=== PATIENT | male | born 1965 | race Caucasian/White ===

== ENCOUNTER 2022-01-23 10:08 | Emergency (ER) | payer OTHER, SELFPAY ==
--- NOTE | ~2022-01-23 | XR_ITS ---
EXAMINATION: XR wrist LT min 3V DATE: 01/23/2022 10:29 INDICATION: Left wrist pain and swelling one day post fall TECHNIQUE: Posteroanterior, ulnar deviation, oblique, and lateral views of the left wrist were obtain ed. COMPARISON: none FINDINGS: Comminuted intra-articular fracture of the distal left radius. There is both a transverse fracture pl ane at the metaphysis as well as a sagittally oriented fracture plane which extends to the articular surface at the lunate fossa without significant fracture gap or incongruity. Mild posterior displacem ent of a small fragment along the dorsal cortex of the metaphysis. Alignment remains otherwise essent ially anatomic. No other fractures identified. 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 IMPRESSION: 1. Comminuted intra-articular fracture of the distal left radius which remains in near-anatomic align ment. Reviewed, dictated and finalized at location A. IMPRESSION: 1. Comminuted intra-articular fracture of the distal left radius which remains in near-anatomic alignment.
[2022-01-23 10:41] VITALS: BP 146/89; PULSE 73; RESP 16; TEMP 36.2; O2SAT 100
--- NOTE | 2022-01-23 12:47 | ED.GENADULT ---
HPI - General Adult General Chief complaint: Extremity Injury, Upper Stated complaint: Left Wrist Injury Time Seen by Provider: 01/23/22 11:54 Source: patient Limitations: no limitations History of Present Illness HPI narrative: 57-year-old male presenting to the emergency department for evaluation of left wrist pain after having a fall last night. Patient states he was walking down his stairs in his socks when he slipped, fell and injured his left wrist. Patient did strike his head but denies any loss of consciousness. Patient denies any current headache. Fall happened approximately midnight to 2 AM. Patient states he did initially ice the wrist and wore a splint last night but woke up and was still having persistent swelling and pain so he presented to the emergency department for evaluation. Related Data Allergies Allergy/AdvReac Type Severity Reaction Status Date / Time Penicillins Allergy Unknown -rash Verified 09/14/17 21:20 (reported to ortho) Review of Systems Review of Systems: CONSTITUTIONAL: Denies fever, chills, or sweats. EYES: Denies visual changes, redness, or discharge. ENT: Denies rhinorrhea, congestion, sore throat, or otalgia. CARDIOVASCULAR: Denies chest pain, palpitations, or edema. RESPIRATORY: Denies cough or dyspnea. GASTROINTESTINAL: Denies abdominal pain, nausea, vomiting, or diarrhea. GENITOURINARY: Denies dysuria or hematuria. SKIN: Denies rash or itching. MUSCULOSKELETAL: See HPI NEUROLOGIC: Denies headache, numbness, or weakness. PSYCHIATRIC: Denies anxiety or depression. Exam Narrative: APPEARANCE: Well appearing, no distress, well-nourished. HEAD: normocephalic, atraumatic. EYES: PERRLA/EOMI, conjunctivae clear. NOSE: Normal no drainage EARS:TMS clear with good light reflex. NECK: Supple. No adenopathy, no masses. No midline tenderness to palpation RESPIRATORY: Airway patent, respirations nonlabored. Clear to auscultation bilaterally, no rales, rhonchi, wheezing. CARDIOVASCULAR: Regular rate and rhythm without murmurs rubs or gallops. ABDOMINAL: Soft, nontender, nondistended, normal bowel sounds MUSCULOSKELETAL: Left wrist tenderness to palpation with swelling. Neurovascular intact. Good strength and reflexes NEURO: Alert. Cranial nerves II through XII intact. Good gait. Good coordination SKIN: Abrasion to left forehead, no tenderness to palpation, no hematoma PSYCHIATRIC: Normal affect/mood. Course Course Emergency Course: Patient was updated on the results of the x-ray. Patient was placed in an Ortho-Glass splint in the ED. Patient was also provided a sling for comfort. Patient was encouraged to have close follow-up with orthopedics. All questions and concerns were addressed. Patient was well-appearing at time of discharge from the emergency. Vital Signs Vital signs: Vital Signs Temperature 97.1 F L 01/23/22 10:41 Pulse Rate 73 01/23/22 10:41 Respiratory Rate 16 01/23/22 10:41 Blood Pressure 146/89 H 01/23/22 10:41 Pulse Oximetry 100 01/23/22 10:41 Temperature 97.1 F L 01/23/22 10:41 Pulse Rate 73 01/23/22 10:41 Respiratory Rate 16 01/23/22 10:41 Blood Pressure 146/89 H 01/23/22 10:41 Pulse Oximetry 100 01/23/22 10:41 Medical Decision Making Vital Signs Vital Signs: Vital Signs Temperature 97.1 F L 01/23/22 10:41 Pulse Rate 73 01/23/22 10:41 Respiratory Rate 16 01/23/22 10:41 Blood Pressure 146/89 H 01/23/22 10:41 Pulse Oximetry 100 01/23/22 10:41 Temperature 97.1 F L 01/23/22 10:41 Pulse Rate 73 01/23/22 10:41 Respiratory Rate 16 01/23/22 10:41 Blood Pressure 146/89 H 01/23/22 10:41 Pulse Oximetry 100 01/23/22 10:41 Imaging Data Radiologist's impression: Impressions Wrist X-Ray 01/23/22 10:41 IMPRESSION: 1. Comminuted intra-articular fracture of the distal left radius which remains in near-anatomic alignment. Discharge Plan Discharge Clinical Impression: Distal radial fra
== END 2022-01-23 13:58 | disposition home or self-care (01) ==
PROVIDERS: Emergency Provider Emergency Medicine; PCP Nurse Practitioner Adult Health
DX: S52.572A Other intraarticular fracture of lower end of left radius, initial encounter for closed fracture (principal); W10.9XXA Fall (on) (from) unspecified stairs and steps, initial encounter
CPT/HCPCS: 29125; 73110; 99284; A4565

== ENCOUNTER 2022-09-25 00:13 | Day surgery (SDC) | payer OTHER, SELFPAY ==
[2022-05-17 14:03] VITALS: BMI 33.0
--- NOTE | 2022-06-15 14:08 | PC.NURSE ---
Patient denies any changes in health history or medications since previous interview. Updated on date and time or arrival.
--- NOTE | 2022-07-02 10:21 | SUR.PREOP ---
1021 PATIENT CALLED AND INFORMED OF HIS DOCTOR'S UNAVAILABILITY. INFORMED PATIENT OF THE OFFICE CALLING TO RESCHEDULE.PATIENT VOICED UNDERSTANDING.
--- NOTE | 2022-09-12 13:51 | PC.NURSE ---
Verified with patient new date and time for Colonoscopy. No questions or concerns were expressed. No new medications or medical hx reported.
[2022-09-25 09:24] VITALS: BP 109/78; PULSE 100; RESP 18; TEMP 36.2; O2SAT 98
[2022-09-25] MEDS: LACTATED RINGERS 1,000 ML 150 ML IV CONT (09:34)
--- NOTE | 2022-09-25 10:14 | PM.HPGS ---
History of Present Illness History of Present Illness Consent: Risks, benefits, and alternatives have been discussed and questions answered. Patient agrees to proceed with procedure. Chief complaint: neoplasm screening Narrative: Sylvester Preston is a 56 year old male here for first screening colonoscopy Review of Systems Constitutional: Constitutional: Denies headache(s) and Denies weakness Eyes: Eyes: Denies blurry vision ENT: Reports Normal hearing present, Denies headache(s) and Denies neck pain Cardiovascular: Cardiovascular: Denies chest pain and Denies dyspnea Respiratory: Respiratory: Denies dyspnea Gastrointestinal: Gastrointestinal: Reports no additional gastrointestinal complaints Genitourinary: Genitourinary: Denies dysuria Musculoskeletal: Musculoskeletal: Denies neck pain Integumentary/Breasts: Skin/Breast: Denies dry skin Neurologic: Reports Normal hearing present, Denies headache(s) and Denies weakness Psychiatric: Psychiatric: Denies anxiety Endocrine: Endocrine: Denies change in body appearance Hematologic/Lymphatic: Hematologic/Lymphatic: Denies easy bleeding Allergic/Immunologic: Allergic/Immunologic: Denies urticaria [facility] Past Medical History Medical History (Updated 09/25/22 @ 10:14 by Brandon Kamara MD) Colon cancer screening Surgical History Surgical History (Updated 02/03/22 @ 08:44 by Yolanda Lopez MA) History of elbow surgery L elbow broken, 1981 History of hand surgery Left little finger reconstruction, 1984 Hx of spinal surgery L4 and L5 Disc Bulge Family History Family History (Updated 02/03/22 @ 08:46 by Yolanda Lopez MA) Unknown Family history of cancer Hodgkin's Lymphoma Other Depression Family history of arthritis Family history of high cholesterol Heart disease Social History Social History (Updated 02/03/22 @ 08:47 by Yolanda Lopez MA) Smoking packs per day: 1 Smoking cigarettes per day: 20.0 Years smoked: 30 Smoking pack-years: 30.00 Smoking status: Former smoker Tobacco type: cigarettes Smoking end date: 09/10/17 Alcohol intake: never Substance use: current Substance use type: marijuana Other substance usage details: occasional Additional occupation/education comments: [employer], self-employed Gender identity (if verbalized by the patient): Male Meds Home Medications and Allergies Home Medications Medication Instructions Recorded Confirmed Type aspirin 81 mg tablet,delayed 81 mg PO DAILY 02/03/22 05/17/22 History release (Adult Low Dose Aspirin) multivitamin 1 tablet PO DAILY 02/03/22 05/17/22 History atorvastatin 20 mg tablet 20 mg PO DAILY 05/17/22 05/17/22 History Allergies Allergy/AdvReac Type Severity Reaction Status Date / Time Penicillins Allergy Unknown -rash Verified 09/25/22 09:10 (reported to ortho) Vital Signs Vital Signs - 24 hr 09/25/22 09:24 Temperature 97.1 F L Pulse Rate 100 Respiratory Rate 18 Blood Pressure 109/78 Pulse Oximetry 98 Oxygen Delivery Room Air Exam Const: General: comfortable and no acute distress HENMT: Face/Nose/Sinus: Normal nares present Eyes: General: appearance normal, both eyes and all related structures Neck: Neck: no JVD Resp: Auscultation: clear to auscultation bilaterally Cardio: Rate: regular rate Rhythm: regular rhythm GI: Inspection: non-distended GI Palp: Yes Soft to palpation Skin: General skin exam: normal color Neuro: General: gait normal Speech: normal speech Extrem: General: normal to inspection Psych: Mental Status: mental status grossly normal Assessment and Plan Assessment and plan (1) Colon cancer screening: Code(s): Z12.11 - Encounter for screening for malignant neoplasm of colon Status: Acute Assessment and Plan: colonoscopy
--- NOTE | 2022-09-25 10:18 | P.PNAN_ITS ---
Anes - Initial Pre Proc Eval Procedure: Operation Date: 09/25/22 10:30 Proposed Procedures p Screening Colonoscopy - Brandon Kamara MD Date/Time: 09/25/22 10:18 Surgeon: Brandon Kamara MD Pre Op Diagnosis: neoplasm screening Patient Data Age: 56 Gender: M Height: 1.85 m Weight: 110.9 kg Last Vital Signs Temp 97.1 F L 09/25/22 09:24 Pulse 100 09/25/22 09:24 Resp 18 09/25/22 09:24 BP 109/78 09/25/22 09:24 Pulse Ox 98 09/25/22 09:24 O2 Del Method Room Air 09/25/22 09:24 Allergies Allergy/AdvReac Type Severity Reaction Status Date / Time Penicillins Allergy Unknown -rash Verified 09/25/22 09:10 (reported to ortho) Home Medications Medication Instructions Recorded Confirmed Type aspirin 81 mg tablet,delayed 81 mg PO DAILY 02/03/22 05/17/22 History release (Adult Low Dose Aspirin) multivitamin 1 tablet PO DAILY 02/03/22 05/17/22 History atorvastatin 20 mg tablet 20 mg PO DAILY 05/17/22 05/17/22 History Patient hx anesthesia problems: none Family hx anesthesia problems: none Results Review: All pre-operative results and documents have been reviewed as part of the pre- operative evaluation. [facility], [facility] Past Medical History Medical History (Updated 09/25/22 @ 10:14 by Brandon Kamara MD) Colon cancer screening Surgical History Surgical History (Updated 02/03/22 @ 08:44 by Yolanda Lopez MA) History of elbow surgery L elbow broken, 1981 History of hand surgery Left little finger reconstruction, 1984 Hx of spinal surgery L4 and L5 Disc Bulge Family History Family History (Updated 02/03/22 @ 08:46 by Yolanda Lopez MA) Unknown Family history of cancer Hodgkin's Lymphoma Other Depression Family history of arthritis Family history of high cholesterol Heart disease Social History Social History (Updated 02/03/22 @ 08:47 by Yolanda Lopez MA) Smoking packs per day: 1 Smoking cigarettes per day: 20.0 Years smoked: 30 Smoking pack-years: 30.00 Smoking status: Former smoker Tobacco type: cigarettes Smoking end date: 09/10/17 Alcohol intake: never Substance use: current Substance use type: marijuana Other substance usage details: occasional Additional occupation/education comments: [employer], self-employed Gender identity (if verbalized by the patient): Male Anes - Eval Final PreProcedure Day of Procedure 09/25/22 10:18 Patient weight: obese Heart: regular rate and rhythm Lungs: clear to auscultation Airway: Mallampati scale class II Neurological: alert and oriented Last oral intake: >/= 8 hours ASA classification: II Emergent: no Anesthetic plan: proceed Results Review: All pre-operative results and documents have been reviewed as part of the pre- operative evaluation. Informed Consent: The patient's anesthetic plan and its attendant risks and benefits were discussed with the patient/family/POA. Questions were solicited and answers provided to the satisfaction of the patient/family/POA.
[2022-09-25 10:35] VITALS: BP 94/61; PULSE 80; RESP 30; O2SAT 99
[2022-09-25 10:45] VITALS: BP 98/70; PULSE 83; RESP 15; O2SAT 97
[2022-09-25 10:55] VITALS: BP 125/85; PULSE 67; RESP 19; O2SAT 95
== END 2022-09-25 11:04 | disposition home or self-care (01) ==
PROVIDERS: Visit Provider Internal Medicine Gastroenterology
PROC: 0DJD8ZZ Inspection of Lower Intestinal Tract, Via Natural or Artificial Opening Endoscopic (ICD-10-PCS; CPT 45378; principal; 2022-09-25 10:30)
DX: Z12.11 Encounter for screening for malignant neoplasm of colon (principal); K57.30 Diverticulosis of large intestine without perforation or abscess without bleeding; K64.8 Other hemorrhoids; Z79.82 Long term (current) use of aspirin; Z87.891 Personal history of nicotine dependence; F12.90 Cannabis use, unspecified, uncomplicated; E66.9 Obesity, unspecified; Z68.32 Body mass index [BMI] 32.0-32.9, adult
CPT/HCPCS: 45378; J2704; J7120